=== PATIENT | male | born 1945 ===

== ENCOUNTER 2018-11-17 10:45 | Inpatient (IN) | payer OTHER ==
[~2018-11-17] VITALS: Ht 172.7 cm; Wt 95.3 kg
[2018-11-17] MEDS ORDERED: HYZAAR 100-12.1 EACH PO (10:48)
[2018-11-17] MEDS ORDERED: ZOCOR PO (10:49)
[2018-11-17] MEDS ORDERED: ZOLOF PO (10:49)
[2018-11-17] MEDS ORDERED: ADULT ASPIRIN81 MG PO (10:50)
[2018-11-22] MEDS ORDERED: SIMVASTATIN20 MG PO (08:04)
[2018-11-22] MEDS ORDERED: SERTRALINE HCL100 MG PO (08:04)
[2018-11-25] MEDS ORDERED: INTEGRA PLUS C1 EACH PO (07:50)
[2018-11-25] MEDS ORDERED: OXYC1TAB9 PO (07:50)
[2018-11-25] MEDS ORDERED: XARELTO10 MG PO (07:50)
== END 2018-11-25 14:02 | DRG 470 ==
LOC: EDSTATUS 10:45 → ADM 10:45 → SURH 11-22 07:00 → EDSEX 11-22 07:02 → SURG 11-22 07:02 → SURH 11-22 07:02 → O/R 11-22 07:02 → SURH 11-22 10:45 → SURG 11-22 18:24
PROVIDERS: ADMIT Orthopaedic Surgery Sports Medicine
PROC: 0SRB0J9 Replacement of Left Hip Joint with Synthetic Substitute, Cemented, Open Approach (ICD-10-PCS; principal; 2018-11-22 07:00)
DX: M16.12 Unilateral primary osteoarthritis, left hip (principal)